=== PATIENT | female | born 1990 | race Caucasian/White ===

== ENCOUNTER → 2020-12-17 11:29 | Outpatient (BNVA) | payer OTHER, SELFPAY | PROVIDERS: PCP Internal Medicine; Visit Provider Nurse Practitioner Family | DX: Z20.822 Contact with and (suspected) exposure to COVID-19 (principal); J06.9 Acute upper respiratory infection, unspecified | CPT/HCPCS: 87635 ==

== ENCOUNTER 2020-12-23 07:57 | Outpatient (CLI) | payer SELFPAY ==
[2020-12-23 08:33] VITALS: BP 116/75; PULSE 77; RESP 19; TEMP 36.6; O2SAT 98
[2020-12-23 11:22] VITALS: BP 98/66; PULSE 71; RESP 18; O2SAT 99
== END 2020-12-23 14:13 | disposition home or self-care (01) ==
LOC: ER 07:59
PROVIDERS: PCP Internal Medicine; Visit Provider Nurse Practitioner Family
DX: U07.1 COVID-19 (principal)

== ENCOUNTER → 2021-02-02 11:46 | Outpatient (BNVA) | payer MEDICAID, SELFPAY | PROVIDERS: PCP Internal Medicine; Visit Provider Psychiatry & Neurology Psychiatry | DX: F41.1 Generalized anxiety disorder (principal); F33.2 Major depressive disorder, recurrent severe without psychotic features; F43.12 Post-traumatic stress disorder, chronic; F12.20 Cannabis dependence, uncomplicated; F17.200 Nicotine dependence, unspecified, uncomplicated | CPT/HCPCS: 99214 ==

== ENCOUNTER → 2021-03-16 09:31 | Outpatient (BNVA) | payer MEDICAID, SELFPAY | PROVIDERS: PCP Internal Medicine; Visit Provider Psychiatry & Neurology Psychiatry | DX: F41.1 Generalized anxiety disorder (principal); F33.2 Major depressive disorder, recurrent severe without psychotic features; F43.12 Post-traumatic stress disorder, chronic; F17.200 Nicotine dependence, unspecified, uncomplicated; F12.20 Cannabis dependence, uncomplicated | CPT/HCPCS: 99214 ==

== ENCOUNTER → 2021-05-05 10:42 | Outpatient (BNVA) | payer MEDICAID, SELFPAY | PROVIDERS: PCP Internal Medicine; Visit Provider Psychiatry & Neurology Psychiatry | DX: F41.1 Generalized anxiety disorder (principal); F33.2 Major depressive disorder, recurrent severe without psychotic features; F43.12 Post-traumatic stress disorder, chronic; F17.200 Nicotine dependence, unspecified, uncomplicated | CPT/HCPCS: 99213 ==

== ENCOUNTER → 2021-07-28 12:42 | Outpatient (BNVA) | payer MEDICAID, SELFPAY | PROVIDERS: PCP Internal Medicine; Visit Provider Psychiatry & Neurology Psychiatry | DX: F41.1 Generalized anxiety disorder (principal); F33.2 Major depressive disorder, recurrent severe without psychotic features; F43.12 Post-traumatic stress disorder, chronic; F12.20 Cannabis dependence, uncomplicated | CPT/HCPCS: 99213 ==

== ENCOUNTER 2023-07-25 08:46 | Outpatient (CLI) | payer MEDICAID, SELFPAY ==
--- NOTE | 2023-07-25 08:53 | MM_ITS ---
WS: [id number] DIAGNOSTIC BILATERAL DIGITAL BREAST TOMOSYNTHESIS MAMMOGRAPHY WITH CAD Bilateral breast ultrasound, limited. HISTORY: BREAST PAIN NIPPLE D/C COMPARISON: None available. TECHNIQUE: Bilateral craniocaudad, mediolateral oblique, and mediolateral views are submitted with to mosynthesis and SM. Spot compression views anterior breast. Additional LEFT CC and MLO spot compressi on views in the area of pain. Computer aided detection utilized. Breast composition: There are scattered areas of fibroglandular density. There are a few benign-appea ring densities which are probably lymph nodes scattered throughout the breast. No suspicious calcific ation or mass. No distortion. No abnormality in the LEFT breast at the pain marker at 9:00. No subare olar abnormality. Bilateral breast ultrasound, limited. RIGHT: No dilated ducts around the nipple. There is no mass. LEFT: No dilated ducts around the nipple. No mass. Ultrasound at 9:00 in the area of pain is also neg ative. IMPRESSION: MM/[place] [id number] BI-RADS: 2-Benign FOLLOW UP: 1 Year Follow-up
== END 2023-07-25 08:47 | disposition home or self-care (01) ==
LOC: RAD 08:47
PROVIDERS: PCP Internal Medicine; Visit Provider Advanced Practice Midwife
DX: N64.4 Mastodynia (principal); N64.52 Nipple discharge; R92.323 Mammographic fibroglandular density, bilateral breasts
CPT/HCPCS: 76642; 77062; G0279

== ENCOUNTER 2023-11-09 06:21 | Day surgery (SDC) | payer MEDICAID, SELFPAY ==
[2023-11-09] VITALS (12 sets, daily range): BP systolic 98–152; BP diastolic 64–94; PULSE 56–78; RESP 13–20; TEMP 36.1–36.9; O2SAT 98–100; BMI 32.9
--- NOTE | 2023-11-09 01:17 | W.PM.OPSFHP ---
Same Day Surgery H&P Indication for Procedure/HPI DATE OF PROCEDURE: November 09, 2023 CHIEF COMPLAINT/INDICATIONFOR SURGICAL PROCEDURE: desires permanent sterilization PREOP DIAGNOSIS: desires permanent sterilization PLANNED PROCEDURE: Operation Date: 11/09/23 08:15 Proposed Procedures p Laparoscopic Salpingectomy partial 12868. z30.2(Bilateral) - Jose M Johnson MD 33 y.o. on DMPA desires permanent sterilization Medications/Allergies* Home Medications Medication Instructions Recorded Confirmed Type diclofenac sodium 1 % topical gel 2 g topical QID 08/21/23 11/08/23 History (Voltaren Arthritis Pain) Allergies/Adverse Reactions Allergy/AdvReac Type Severity Reaction Status Date / Time acetaminophen [From Vicodin] Allergy Mild Nausea Verified 11/08/23 13:05 hydrocodone [From Vicodin] Allergy Mild Nausea Verified 11/08/23 13:05 tramadol Allergy Mild Nausea Verified 11/08/23 13:05 Pertinent History/Comorbid Conditions* Medical History (Updated 09/02/23 @ 18:43 by Jose M Johnson MD) Cannabis use disorder, moderate, dependence Nicotine dependence, unspecified, uncomplicated Family History (Updated 08/21/23 @ 09:13 by Kathi Rivera LPN) Diabetes Mother Breast cancer Mother Hypertension Mother Denies family history of Colon cancer Ovarian cancer Prostate cancer Heart disease Hypercholesteremia Uterine cancer Thyroid disease Stroke Pertinent Exam Findings alert, oriented x 3, clear to auscultation bilaterally and regular rate & rhythm Recommendations Surgery/Procedure today Coding Level of Care Code Acute Code for Chg Fwd Time Spent (min) 20
[2023-11-09 06:42] LABS: OR HCG Qualitative Urine Negative (Negative)
[2023-11-09] MEDS: sodium chloride 0.9% 1,000 ML 30 ML IV (06:45)
--- NOTE | 2023-11-09 06:56 | W.PM.OPSUD ---
Surgery/Procedure H&P Update DATE OF PROCEDURE: November 09, 2023 DATE H&P PERFORMED: 11/09/23 H&P UPDATE INFORMATION: I have reviewed H&P completed within last 30 days, I have examined patient prior to procedure and No changes to prior documentation PREOP DIAGNOSIS: desires permanent sterilization PLANNED PROCEDURE: Operation Date: 11/09/23 08:15 Proposed Procedures p Laparoscopic Salpingectomy partial 18411. z30.2(Bilateral) - Jose M Johnson MD
--- NOTE | 2023-11-09 07:06 | ANES.PREANE2 ---
Pre-Anesthetic Assessment Height/Weight: Height 1.57 m Weight 81.647 kg Temp Pulse Resp BP Pulse Ox O2 Del Method 97.0 F L 78 17 152/94 98 Room Air 11/09/23 06:31 11/09/23 06:31 11/09/23 06:31 11/09/23 06:31 11/09/23 06:31 11/09/23 06:32 Preop Diagnosis: desires permanent sterilization Operation Date: 11/09/23 08:15 Proposed Procedures p Laparoscopic Salpingectomy partial 34632. z30.2(Bilateral) - Jose M Johnson MD Familial anesthetic complications: Agitation post-op, pulling her lines Was Beta Hong taken within 24 hours: N/A Was Clonidine taken within 24 hours: N/A Last intake: Intake Last Liquid Date 11/08/23 Last Liquid Time 23:00 Last Solid Date 11/08/23 Last Solid Time 23:00 Social Tobacco and No alcohol Exam alert, oriented x 3, clear to auscultation bilaterally and regular rate & rhythm Airway Mallampati: Class I Dentition: other (no teeth) Anesthetic Plan ASA status: 2 Anesthesia: General Risk of > 500 ml blood loss (7ml/kg in children): No Medications/Allergies Home Medications Medication Instructions Recorded Confirmed Last Taken Type diclofenac sodium 1 % topical gel 2 g topical QID 08/21/23 11/08/23 Unknown History (Voltaren Arthritis Pain) Allergies Allergy/AdvReac Type Severity Reaction Status Date / Time acetaminophen [From Vicodin] Allergy Mild Nausea Verified 11/08/23 13:05 hydrocodone [From Vicodin] Allergy Mild Nausea Verified 11/08/23 13:05 tramadol Allergy Mild Nausea Verified 11/08/23 13:05 Current Medications Generic Name Dose Route Start Last Admin Trade Name Freq PRN Reason Stop Dose Admin Sodium Chloride 1,000 mls @ 30 mls/hr 11/09/23 06:30 11/09/23 06:45 Sodium Chloride 0.9% IV 11/10/23 06:29 30 mls/hr .Q24H CARLA Administration PFSH Anesthesia Medical History Cannabis use disorder, moderate, dependence Nicotine dependence, unspecified, uncomplicated Family History (Updated 08/21/23 @ 09:13 by Kathi Rivera LPN) Mother Breast cancer Hypertension Diabetes Denies family history of Colon cancer Ovarian cancer Prostate cancer Heart disease Hypercholesteremia Uterine cancer Thyroid disease Stroke Data Anesthesia Cardiac Studies: No Data to Display
[2023-11-09] MEDS: midazolam 1 mg/mL INJ 2 mL 2 MG IVP (07:09)
[2023-11-09] MEDS: fentaNYL 50 mcg/mL INJ 2mL IVP (09:12)
--- NOTE | 2023-11-09 10:45 | P.OP_ITS ---
Operative Report Date of procedure: November 09, 2023 Pre-op diagnosis: desires permanent sterilization Post-op diagnosis: same Post-op findings: normal uterus, tubes, and ovaries Procedure done: laparoscopic bilateral partial salpingectomy Implants: none Specimens removed/disposition: bilateral partial fallopian tube segments Surgeon: Jose M Johnson MD Anesthesia: General Estimated blood loss (mL): 5 Complications: none Findings: normal uterus, tubes, and ovaries Condition: stable Disposition: PACU Brief History: 33 y.o. desires permanent sterilization Procedure: Informed consent was obtained. The patient was taken to the OR and placed on the table. General endotracheal anesthesia was induced. The patient was then placed in dorsolithotomy position. The abdomen and perineum were then prepped and draped in the usual fashion. A 5 mm subumbilical skin incision was made. A 5 mm trocar with sheath was then inserted into the peritoneal cavity under direct visualization with the laparoscope. After confirming intraperitoneal position, pneumoperitoneum was achieved. Two separate 5 mm incisions were made in the right and left mid- quadrants. 5 mm trocars with sheaths were then inserted into the peritoneal cavity under direct visualization with the laparoscope. The right fallopian tube was then identified to its fimbrial end. Starting at the fimbrial end, the mesosalpinx was then coagulated and cut using the Endoseal. A 3-4 cm portion of the right fallopian tube was excised and removed via one of the ports. This was sent to pathology. There was no bleeding seen. Similarly, the left fallopian tube was identified to its fimbrial end. A 3-4 cm portion of the left fallopian tube was excised and removed, sent to pathology. There was no bleeding. All instruments were then removed from the peritoneal cavity after the pneumoperitoneum was allowed to escape. The skin incisions were closed using 3- O chromic in subcuticular fashion. Dermabond was applied. The patient was then placed supine and awakened, taken the the PACU in good condition. Postop condition: stable EBL: 5 cc Complications: none Sponge, needles, and instruments counts correct x two
--- NOTE | 2023-11-09 12:08 | ANE.PACU2 ---
Inpatient post-anesthesia follow up: Airway intact: Yes Vital signs: Temperature 98.5 F Pulse Rate 62 Respiratory Rate 17 Blood Pressure 98/65 Pulse Oximetry 99 Oxygen Delivery Me thod Room Air Oxygen Flow Rate Fraction of Inspir ed Oxygen Hydration adequate: Yes Nausea and vomiting: No Pain level: 1 Mental status: Baseline
== END 2023-11-09 10:08 | disposition home or self-care (01) ==
PROVIDERS: PCP Family Medicine; Visit Provider Obstetrics & Gynecology
PROC: (CPT 58661; principal; 2023-11-09 08:05)
DX: Z30.2 Encounter for sterilization (principal)
CPT/HCPCS: 58661; 81025; 88302; J1100; J1200; J1885; J2250; J2405; J2704; J2710; J3010; J3490; J7030

== ENCOUNTER → 2024-01-04 08:13 | Outpatient (BNVA) | payer MEDICAID, SELFPAY | PROVIDERS: PCP Family Medicine; Visit Provider Podiatrist Foot & Ankle Surgery | DX: M79.672 Pain in left foot (principal); M72.2 Plantar fascial fibromatosis | CPT/HCPCS: 73630 ==